=== PATIENT | male | born 1985 | race African-American/Black ===

== ENCOUNTER 2017-04-25 01:16 | Emergency (ER) | payer SELFPAY, OTHER ==
[2017-04-25] MEDS: LIDOCAINE/MYLANTA 40 ML BTL PO (04:57)
== END 2017-04-25 05:32 | disposition home or self-care (01) ==
LOC: E/R 01:16
DX: R10.13 Epigastric pain (principal)
CPT/HCPCS: 99283

== ENCOUNTER 2017-04-25 16:16 | Emergency (ER) | payer SELFPAY, OTHER | END 2017-04-25 19:46 | disposition home or self-care (01) | LOC: FTE 16:16 | DX: R50.9 Fever, unspecified (principal); R52 Pain, unspecified | CPT/HCPCS: 99282 ==